=== PATIENT | male | born 1975 | race Caucasian/White ===

== ENCOUNTER → 2019-09-16 05:50 | Day surgery (SDC) | payer BC ==
[~2019-09-16 05:50] MED LIST: Acetaminophen TAB* 325 MG ONE; Acetaminophen TAB* 325 MG PO ONE; Acetaminophen TAB* 325 MG PO PRN; Buffered Lidocaine 1% SYRIN* 1 ML/SYRINGE INTRADERM ONE; Bupivacaine 0.25% SDV PF* 10 ML VIAL INJ ONE; Clindamycin 900 MG/D5W BAG(*) 900 MG/50 ML BAG IVPB ONE; Dexamethasone IV* 4 MG/ML 1 ML (4 MG) ONE; DiMENhydriNATE IV* 50 MG/ML VIAL IV PUSH PRN; Famotidine IV* 10 MG/ML 2 ML (20 mg) IV ONE; Famotidine IV* 10 MG/ML 2 ML (20 mg) ONE; Gabapentin CAP(*) 300 MG ONE; Gabapentin CAP(*) 300 MG PO ONE; HYDROcodone/ACETAMIN 5-325 MG* 1 TAB PO PRN; HYDROmorphone INJ1* 1 MG/ML SYRINGE IV PRN; HYDROmorphone INJ1* 1 MG/ML SYRINGE ONE; Ketorolac INJ* 30 MG/ML 1 ML VIAL ONE; Lactated Ringers 1000 ML Bag* 1,000 ML IV SCH; Levalbuterol 0.63MG/3ML NEB* UNIT OF USE INH ONE; Levalbuterol 0.63MG/3ML NEB* UNIT OF USE INH PRN; Lidocaine 1% w EPI 1:200,000* SDV 30 ML VIAL ONE; Lidocaine 2% PF * 5 ML VIAL ONE; Midazolam* 1 MG/ML 2 ML VIAL (2 MG) ONE; Naloxone* 0.4 MG/ML 1 ML VIAL IV PRN; Ondansetron INJ* 2 MG/ML VIAL IV PRN; Propofol* 10 MG/ML 20 ML BTL ONE; Rocuronium* 10 MG/ML VIAL ONE; diPHENhydraMINE IV* 50 MG/ML 1 ml VIAL (BENADRYL) IV PRN; fentaNYL* 50 MCG/ML 2 ML VIAL (100 MCG VIAL) IV PRN; fentaNYL* 50 MCG/ML 2 ML VIAL (100 MCG VIAL) ONE
[2019-09-16 12:13] VITALS: BP 143/93
--- NOTE | 2019-09-16 22:07 | OP ---
DATE OF OPERATION: 09/16/19 - [facility] DATE OF : 79 SURGEON: Scott Santamaria MD ELECTRONIC EQUIPMENT REPAIRER: JEROMY Bill ANESTHESIOLOGIST: Dr. Guevara. ANESTHESIA: General with local. PRE-OP DIAGNOSIS: Right inguinal hernia. POST-OP DIAGNOSIS: Right indirect inguinal hernia. OPERATIVE PROCEDURE: Totally extraperitoneal laparoscopic repair with mesh of an indirect right inguinal hernia. ESTIMATED BLOOD LOSS: Minimal. IV FLUIDS: 1 L of crystalloid. SPECIMENS: None. COMPLICATIONS: None. WOUND CLASSIFICATION: I. DRAINS: None. FINDINGS: Small right indirect inguinal hernia. DESCRIPTION OF PROCEDURE: Written informed consent was obtained, the right groin was marked with indelible ink, and preoperative antibiotics were administered. The patient was taken to the operating room and placed in the supine position. Sequential compression devices and warming blanket were applied. A Cheung catheter was inserted. The abdomen and both groins were prepped and draped in the usual sterile fashion. Time-out verification was completed. Initially, 0.25% Marcaine mixed with 1% lidocaine was infiltrated just below the umbilicus at the midline and a transverse incision was made just off to the midline and carried down through the anterior rectus sheath, which was divided transversely to expose the rectus muscle. The muscle was retracted laterally from the midline to expose the posterior rectus sheath. We then developed the space down to the pubic tubercle and placed the Spacemaker balloon and inflated this with approximately 12 squeezes of the hand pump under direct vision of the 10 mm camera. The balloon was then deflated and removed, and a 12 mm blunt port was inserted in the extraperitoneal space and this space was insufflated to 12 mmHg. The patient was placed in Trendelenburg position and two 5-mm ports were placed in the midline about equally spaced between the umbilical incision and the pubis. Medially, the pubis and left and right Carlos's ligament were identified and some of the adventitial tissue was swept down to expose this area. The epigastric vessels were then identified in their usual position as they traveled anteriorly onto the abdominal wall and these were protected from injury throughout. Through some fatty tissue and adventitial tissue, I developed and identified the right anterior abdominal wall out to the iliac crest and identified the iliopubic tract. I then was able to identify the peritoneal edge laterally and working medially, we followed this up into the internal ring where we reduced a small indirect inguinal hernia sac. There was also some lipomatous tissue which was removed. I made a small rent in the peritoneum and I identified this and this was closed with 3 Hemoclips using the 5 mm clip surveying crew stake runner. I was then able to identify the spermatic cord and contents as well as the vas deferens and this was protected from injury throughout. I noted no evidence of a direct inguinal hernia. We next placed a 13 cm x 10 cm Covidien self-adhering mesh and folded this appropriately and placed this into the extraperitoneal space. This was then unfolded to cover both the direct and indirect spaces extending anteriorly onto the abdominal wall and along the posterior retroperitoneum with care to prevent the reflected peritoneum from entering underneath the mesh. The mash passed somewhat to the midline onto the left Carlos's ligament and extended just about to the iliac crest laterally. Hemostasis was assured. We then desufflated the extraperitoneal space under direct vision holding the mesh in place with two graspers to make sure there was no wrinkling or folding as the peritoneum collapsed over the mesh. All ports were removed. We closed the anterior rectus sheath with interrupted 0 Vicryl suture. The skin at all three incisions was approximated with subcuticular 4-0 Vicryl suture. Wound glue was placed. The patient tolerated the procedure well and was taken to the recovery room in stable condition. [id number] #: [id number] KALEE
== END | disposition home or self-care (01) ==
LOC: OR 05:50
PROVIDERS: ATTEND Surgery
DX: K40.90 Unilateral inguinal hernia, without obstruction or gangrene, not specified as recurrent (principal); I10 Essential (primary) hypertension; F17.210 Nicotine dependence, cigarettes, uncomplicated; Z88.1 Allergy status to other antibiotic agents
CPT/HCPCS: A9270-GY; C1781; J1100; J1170; J1885; J2001; J2250; J2704; J3010; J3490

== ENCOUNTER 2022-09-08 06:06 | Observation (INO) ==
[~2022-09-08 06:06] MED LIST changes: -Acetaminophen TAB* 325 MG ONE; -Acetaminophen TAB* 325 MG PO ONE; -Acetaminophen TAB* 325 MG PO PRN; +Buffered Lidocaine 1% SYRIN 1 ml INTRADERM ONE; -Buffered Lidocaine 1% SYRIN* 1 ML/SYRINGE INTRADERM ONE; -Bupivacaine 0.25% SDV PF* 10 ML VIAL INJ ONE; -Clindamycin 900 MG/D5W BAG(*) 900 MG/50 ML BAG IVPB ONE; -Dexamethasone IV* 4 MG/ML 1 ML (4 MG) ONE; -DiMENhydriNATE IV* 50 MG/ML VIAL IV PUSH PRN; -Famotidine IV* 10 MG/ML 2 ML (20 mg) IV ONE; -Famotidine IV* 10 MG/ML 2 ML (20 mg) ONE; -Gabapentin CAP(*) 300 MG ONE; -Gabapentin CAP(*) 300 MG PO ONE; -HYDROcodone/ACETAMIN 5-325 MG* 1 TAB PO PRN; -HYDROmorphone INJ1* 1 MG/ML SYRINGE IV PRN; -HYDROmorphone INJ1* 1 MG/ML SYRINGE ONE; -Ketorolac INJ* 30 MG/ML 1 ML VIAL ONE; -Lactated Ringers 1000 ML Bag* 1,000 ML IV SCH; +Lactated Ringers 1000 ml BAG 1,000 ML IV SCH; -Levalbuterol 0.63MG/3ML NEB* UNIT OF USE INH ONE; -Levalbuterol 0.63MG/3ML NEB* UNIT OF USE INH PRN; -Lidocaine 1% w EPI 1:200,000* SDV 30 ML VIAL ONE; -Lidocaine 2% PF * 5 ML VIAL ONE; -Midazolam* 1 MG/ML 2 ML VIAL (2 MG) ONE; -Naloxone* 0.4 MG/ML 1 ML VIAL IV PRN; -Ondansetron INJ* 2 MG/ML VIAL IV PRN; -Propofol* 10 MG/ML 20 ML BTL ONE; -Rocuronium* 10 MG/ML VIAL ONE; -diPHENhydraMINE IV* 50 MG/ML 1 ml VIAL (BENADRYL) IV PRN; -fentaNYL* 50 MCG/ML 2 ML VIAL (100 MCG VIAL) IV PRN; -fentaNYL* 50 MCG/ML 2 ML VIAL (100 MCG VIAL) ONE
[2022-09-08] MEDS ORDERED: ceFAZolin 2 GM in NS PREMIX 2 GM/100 ML BAG IVPB ONE (06:24)
[2022-09-08] MEDS ORDERED: Midazolam 5 mg/5 ml VIAL 1 mg/ml 5 ml VIAL (5 mg) ONE (07:00)
[2022-09-08] MEDS ORDERED: Vancomycin 1,000 MG VIAL ONE (07:02)
[2022-09-08] MEDS ORDERED: fentaNYL 100 mcg/2 ml 50 MCG/ML VIAL ONE (07:26)
[2022-09-08] MEDS ORDERED: fentaNYL 100 mcg/2 ml 50 MCG/ML VIAL IV PRN (08:12)
[2022-09-08] MEDS ORDERED: Ondansetron ODT 4 mg TAB 4 MG TAB PO PRN ×2 (08:12→09:48)
[2022-09-08] MEDS ORDERED: Prochlorperazine 5 mg/ml 2 ml VIAL (10 mg) IV PRN (08:12)
[2022-09-08] MEDS ORDERED: HYDROmorphone 1 MG/1 ML SYRINGE IV PRN (08:21)
[2022-09-08] MEDS ORDERED: Ondansetron 4 mg VIAL 2 MG/ML 2 ml VIAL IV PRN (09:48)
[2022-09-08] MEDS ORDERED: Lactulose 30 ml UDC PO PRN (09:48)
[2022-09-08] MEDS ORDERED: Morphine 2 MG/ML SYRINGE IV PRN (09:48)
[2022-09-08] MEDS ORDERED: Magnesium Hydroxide LIQ 30 ML UDC PO PRN (09:48)
[2022-09-08] MEDS ORDERED: D5W 1/2 NS 1000 ml BAG 1,000 ML IV SCH (10:00)
[2022-09-08 13:39] VITALS: BP 107/63
[2022-09-08] MEDS ORDERED: ceFAZolin 1 GM ADVAN 1 GM in NS 0.9% 50 ML 50 ML IVPB SCH (16:00)
[2022-09-08] MEDS ORDERED: Magnesium Hydroxide LIQ 30 ML UDC PO SCH (21:00)
[2022-09-09] MEDS ORDERED: Vitamin THERAPEUTIC TAB PO SCH (09:00)
== END 2022-09-08 17:55 | disposition home or self-care (01) ==
LOC: INTOOBSV 06:06 → AA 06:06 → SSU 09:48
PROVIDERS: ADMIT Orthopaedic Surgery; ATTEND Orthopaedic Surgery